=== PATIENT | female | born 1990 | race Caucasian/White ===

== ENCOUNTER 2025-02-20 16:11 | Emergency (ER) | payer OTHER, SELFPAY ==
[2025-02-20 16:14] VITALS: BP 149/97
--- NOTE | 2025-02-20 17:35 | ED.GENMED ---
History of Present Illness
General
Chief Complaint: DVT/Possible Blood Clot
Source: patient
Exam Limitations: none
Time Seen by Provider: 02/20/25 16:34
Nursing documentation reviewed up to this point in time: agreed with
History of Present Illness
History of Present Illness:
Patient is a 34-year-old female with history of factor V Leiden and DVT who presents to the emergency department with about 2 weeks of left leg discomfort. Patient reports pain radiating from her left mid thigh down into her left calf. Symptoms
are exacerbated by certain positional changes and when she is standing for a long time. Patient denies any pain with weightbearing. No known history of trauma. She denies any fevers, chills, chest pain, or shortness of breath. She denies any
numbness/tingling in right lower leg.
Patient contacted her primary care provider who recommended she be seen for an ultrasound to rule out DVT. She did take a prescription for Eliquis that she had in her apartment last night and has had two 5 mg tablets.
She did recently travel back via car from the [facility] few weeks ago
Patient does have a history of DVT approximately 2 years ago and was subsequently diagnosed with factor V Leiden. She was anticoagulated on Eliquis for about 6 months at the time. The DVT was thought to have been triggered by her OCP therefore
that was discontinued and need for ongoing anticoagulation was deemed unnecessary.
Review of Systems
Review of Systems
Allergies reviewed?: Yes
All Other Systems: ROS reviewed and negative except as documented in HPI and ROS
Phy Exam
Physical Exam
Physical Exam:
Vitals: Hypertensive, otherwise vital signs stable. Afebrile
General: Patient is well appearing, no acute distress
Skin: Warm and dry, no rashes or lesions
Head: Normocephalic, atraumatic
Throat: Protecting airway
Neck: Normal ROM, no cervical spine tenderness
Cardiac: Regular rate
Pulm: No apparent respiratory distress
Abdomen: Nondistended
Extremities: No edema, reproducible tenderness or obvious abnormality of left lower extremity. No redness, warmth, or edema of left calf. Full range of motion in left ankle, left knee, and left hip without pain. Patient ambulating and
weightbearing without difficulty. Right lower extremity neurovascularly intact. Negative Homans' sign of LLE.
Neuro: Grossly intact
Psychiatric: Normal affect.
Course
Orders/Labs/Results
Orders:
Orders
02/20/25 16:12
US Legs, Left [US Periph Venous LOWER Ext LT] Urgent
Comment:
Reason For Exam: pain
Vital Signs
Initial and Last Documented VS:
Initial Vital Signs
Temp Pulse Resp BP Pulse Ox
98 F 92 16 149/97 98
02/20/25 16:14 02/20/25 16:14 02/20/25 16:14 02/20/25 16:14 02/20/25 16:14
Last Documented Vital Signs
Temp Pulse Resp BP Pulse Ox
98 F 92 16 149/97 98
02/20/25 16:14 02/20/25 16:14 02/20/25 16:14 02/20/25 16:14 02/20/25 17:39
MDM/Problems Addressed
Differential Diagnosis Includes:
Not limited to: Muscle strain/spasm, DVT, etc.
MDM/Problems Addressed:
34-year-old female presenting with atraumatic pain in left thigh with concern for DVT. Patient with known factor V Leiden and history of DVT years ago, however not currently anticoagulated. No fever, chills, chest pain, shortness of breath. No
inciting injury. No recent long travel. She is no longer on OCPs.
Vitals and exam as above.
Ultrasound obtained which shows no evidence of DVT. Patient appears very well and comfortable appearing. She is ambulating without difficulty. Ultimately suspect likely muscle strain. No evidence of infectious process. Left lower extremity
neurovascularly intact. Feel stable for continued primary care/hematology follow-up outpatient. Advised patient to discontinue Eliquis which was started yesterday as she had a concern of DVT. She will discuss possible aspirin prophylaxis with
primary. Return precautions discussed. Patient comfortable with discharge home
Chronic conditions affecting care:
Factor V Leiden with history of DVT
Acute Exacerbation and/or Progression of Chronic Illness:
N/A
*Radiology
Radiology exam reviewed: radiology read reviewed
*Pulse Oximetry
SaO2: 98
Oxygen Mode of Delivery: Room air
Patient hypoxic: no
*EKG
Interpreted by ED Provider?: NA
*[employer] Dispatcher Interpretation
Rate: [employer] Dispatcher- N/A
*Critical Care Note
Total Time (30-74mins, 75-104mins- exclusive of procedures): Not Applicable
ED Attending Note
-
Portions of this chart may have been created with voice recognition software.� Occasional wrong word or��sound alike� substitutions may have occurred due to the inherent limitations of voice recognition software.
Discharge Plan
Departure
Patient Disposition: Home (Routine Discharge)
Date of Disposition: 02/20/25
Time of Disposition: 17:19
Patient with high blood pressure during this ER visit?: Yes
Discharge Problem:
Pain of left calf
Referrals:
Claude Rooney DO [Family Provider, [facility]] - Keep scheduled appt
Activity Restrictions/Additional Instructions:
RETURN TO THE EMERGENCY DEPARTMENT WITH ANY FEVERS, CHILLS, SIGNIFICANT REDNESS, WARMTH, OR PAIN IN THE LEFT LOWER EXTREMITY, NUMBNESS/TINGLING LEFT LOWER EXTREMITY, CHEST PAIN OR SHORTNESS OF BREATH, WORSENING OF CURRENT SYMPTOMS, OR ANY OTHER
CONCERNS
- As discussed that your ultrasound showed no evidence of a blood clot in your lower extremity today. Your symptoms may be due to a muscle strain.
- I would discontinue the Eliquis. Please discuss with your primary care about taking preventative aspirin daily given your history of factor V Leiden.
- You can take Tylenol as needed for pain. Continue to apply ice, stretch as needed.
- Follow-up with primary care/hematology for further evaluation/management and to ensure that symptoms improve
Monitor your symptoms closely and return to the emergency department with any acute worsening/new symptoms or any other concerns
Interventions
Interventions:
*Risk Screen - Suicide Last Done: 02/20/25 16:14
*Neglect/Abuse Screening Last Done: 02/20/25 16:14
*Nursing Disposition Last Done: 02/20/25 17:22
ED- Cardiac Assessment Last Done: 02/20/25 16:48
ED- Pulmonary Assessment Last Done: 02/20/25 16:48
ED-Peripheral Vascular Assessment Last Done: 02/20/25 16:48
Discharge Date and Time
Discharge Date/Time: 02/20/25 18:42
Print Language: ALBANIAN
== END 2025-02-20 18:42 | disposition home or self-care (01) ==
LOC: EMR 16:11
PROVIDERS: EMERGENCY PHYSICIAN Emergency Medicine; FAMILY PHYSICIAN Family Medicine
DX: M79.662 Pain in left lower leg (principal); D68.51 Activated protein C resistance; Z86.718 Personal history of other venous thrombosis and embolism
CPT/HCPCS: 99284; 93971